=== PATIENT | female | born 1950 | race Caucasian/White ===

== ENCOUNTER → 2016-04-26 | Outpatient (CLI) | payer OTHER ==
--- NOTE | 2016-05-19 11:55 | MA ---
Screening Digital Mammogram With Tomosynthesis Clinical Indications: Routine screening. History of benign biopsy "right" breast. Technique: Standard digital cephalocaudal and tomosynthesis mediolateral oblique projections are obtained. The digital images were processed by the [employer] computer aided detection system. Comparison: None Breast density: B; There are scattered fibroglandular densities. Findings: CAD was reviewed. There is a large oval, gently lobulated, mass in the outer left breast, measuring 5.3 x 2.9 cm. There is no stereotactic marker associated with the mass in the left breast. There is a stereotactic clip in the inner right breast. Impression: Large mass outer left breast. Recommendation: Ultrasound to differentiate cyst from solid. Of course, if the patient can obtain previous outside mammograms, we would be happy to review them to assess for interval change. BI-RADS 0. Additional imaging left breast. [facility] will send a result letter to the patient. Negative mammography should not preclude additional workup of a clinically suspicious finding. The patient's information is entered into a reminder system with a target due date for her next mammogram. [facility], [place]
== END ==
LOC: FIMAGING 10:32
DX: Z12.31 Encounter for screening mammogram for malignant neoplasm of breast (principal)
CPT/HCPCS: G0202

== ENCOUNTER → 2016-05-30 | Outpatient (CLI) | payer OTHER ==
--- NOTE | 2016-05-30 10:53 | US ---
Left Breast Ultrasound History: Evaluate large nodular asymmetry noted in the upper outer left breast on the screening mammo graphic study April 26, 2016. The previous studies from [facility] dated November 2008 arrived after the patient had been scheduled for ultrasound evaluation. Technique: Longitudinal and transverse images were obtained utilizing a 15 MHz transducer. Color Dop pler evaluation is employed for assessment of vascularity. Findings: On physical examination there is a vaguely palpable asymmetry in the left breast at the 2-3 o'clock position 7 cm from the nipple. This would correlate to the area of nodular asymmetry noted m ammographically. Sonographic interrogation demonstrates a heterogeneous lobulated lesion measuring 5. 4 x 1.3 cm. This has somewhat ill-defined margins and mild posterior acoustic enhancement. Review of the mammographic findings demonstrates quite heterogeneous attenuation. This lesion was present on 2008 study and is unchanged in size or appearance mammographically. The constellation of findings o n mammography, sonography and stability since 2008 is compatible with a benign lesion probably a hama rtoma. Impression: Benign findings when considering mammographic and sonographic assessment, BI-RADS 2. Recommendation: Resume routine mammographic screening in one year as long as physical examination is negative. Findings and follow-up recommendations including continued clinical evaluation were reviewed with the patient in detail. [facility] will send a result letter to the patient.
== END ==
LOC: FIMAGING 09:41
PROVIDERS: ATTEND Physician Assistant
DX: R92.8 Other abnormal and inconclusive findings on diagnostic imaging of breast (principal)

== ENCOUNTER 2016-07-24 15:19 | Emergency (ER) | payer OTHER ==
[2016-07-24 15:26] VITALS: RESP 18; TEMP 97.7
--- NOTE | 2016-07-24 15:33 | EDPHY ---
H & P Time Seen by Provider: 07/24/16 15:30 HPI/ROS: Chief complaint. Fall, wrist injury HPI. 65-year-old female was trying out a new pair shoes. She slipped and tripped. She fell on outstretched left hand. Injured her left wrist. She did strike her face but did not lose conscious really does not have any face pain now. Patient is right handed. No previous injury to the left wrist. ROS Constitutional. no fever/chills, no weakness Eyes. no problems with vision ENT. no sore throat, no nasal drainage Cardiovascular. no chest pain Respiratory. no shortness of breath, no cough Abdominal. no abdominal pain, no nausea/vomiting, no diarrhea . no problems urinating MS. Left wrist pain Skin. no rash Lymph. no swollen glands Neuro. no headache, no dizziness, no difficulty walking or with speech Past Medical/Surgical History: Depression Social History: , nonsmoker, no alcohol Smoking Status: Never smoked Physical Exam: General Appearance: Alert well-developed female mild distress vital signs stable Eyes: Pupils equal and round no pallor or injection. ENT, Mouth: Mucous membranes are moist. Respiratory: There are no retractions, lungs are clear to auscultation. Cardiovascular: Regular rate and rhythm. Gastrointestinal: Abdomen is soft and nontender, no masses, bowel sounds normal. Neurological: Awake and alert, sensory and motor exams grossly normal. Skin: Warm and dry, no rashes. Musculoskeletal: Neck is supple nontender. Extremities left wrist is diffusely swollen but no significant deformity. Distal motor vascular sensitivity is intact. She is tender to palpation to the distal radius Psychiatric: Patient is oriented X 3, there is no agitation. Constitutional: Initial Vital Signs Temperature (C) 36.5 C 07/24/16 15:22 Heart Rate 91 07/24/16 15:22 Respiratory Rate 18 07/24/16 15:22 Blood Pressure 147/100 H 07/24/16 15:22 O2 Sat (%) 93 07/24/16 15:22 O2 Delivery Mode Room Air Allergies/Adverse Reactions: No Known Allergies Allergy (Unverified 07/24/16 15:26) Home Medications: Medication Instructions Recorded Lexapro 07/24/16 Wellbutrin Sr 07/24/16 oxyCODONE/APAP 5/325 [Percocet 1 tab PO Q4-6PRN PRN #14 tab 07/24/16 5/325] Medical Decision Making - Diagnostics Imaging: X-ray left wrist interpreted by me shows a mildly comminuted intra-articular distal radius fracture. Essentially no displacement or deformity. Small displaced ulnar styloid fracture is noted as well Procedures: Patient is placed in a sugar-tong splint left forearm. Post splint application shows good anatomic position and distal motor vascular sensitivity intact. She is placed in a sling ED Course/Re-evaluation: Patient remained stable. She and I discussed imaging study results, treatment plan, criteria for return importance of follow-up and further evaluation. She expresses understanding and agreement Differential Diagnosis: I considered fracture, dislocation, sprain - Data Points Medications Given: Discontinued Medications Ibuprofen (Motrin) 600 mg PO EDNOW ONE Stop: 07/24/16 15:38 Last Admin: 07/24/16 15:47 Dose: 600 mg Departure - Departure Disposition: Home, Routine, Self-Care Clinical Impression: Distal radius fracture, left Qualifiers: Encounter type: initial encounter Fracture type: closed Fracture morphology: other intra-articular Qualified Code(s): S52.572A - Other intraarticular fracture of lower end of left radius, initial encounter for closed fracture Condition: Good Instructions: Wrist Fracture in Adults (ED) Additional Instructions: Splint and sling until you see orthopedist. Ice to wrist next 24-48 hours. Tylenol or Percocet as needed for pain. Return for worsening symptoms. Call in the morning to arrange follow-up orthopedist evaluation Referrals: Tish Mccauley PA [Primary Care Provider] - As per Instructions John Ramsey MD [Medical Doctor] - 5-7 days, call for appt. Prescriptions: oxyCODONE/APAP 5/325 [Percocet 5/325] 1 tab PO Q4-6PRN PRN #14 tab PRN Reason: Pain, Moderate
[2016-07-24] MEDS ORDERED: IBUPROFEN 600 MG TAB PO ONE (15:37)
[2016-07-24 17:21] VITALS: BP 135/88; PULSE 71; O2SAT 96
== END 2016-07-24 17:18 | disposition home or self-care (01) ==
DX: S52.572A Other intraarticular fracture of lower end of left radius, initial encounter for closed fracture (principal); W01.0XXA Fall on same level from slipping, tripping and stumbling without subsequent striking against object, initial encounter

== ENCOUNTER → 2016-10-09 | Outpatient (CLI) | payer OTHER | LOC: FIMAGING 14:04 | PROVIDERS: ATTEND Physician Assistant | DX: Z13.820 Encounter for screening for osteoporosis (principal); M85.80 Other specified disorders of bone density and structure, unspecified site; S62.109A Fracture of unspecified carpal bone, unspecified wrist, initial encounter for closed fracture ==

== ENCOUNTER 2016-12-06 10:23 | Emergency (ER) | payer OTHER ==
[2016-12-06 10:28] VITALS: RESP 16; TEMP 97.9
--- NOTE | 2016-12-06 11:48 | EDPHY ---
H & P Time Seen by Provider: 12/06/16 11:47 HPI/ROS: Chief complaint. Nausea vomiting HPI. 66-year-old female presents emergency department with vertigo for 3 days. She notes dizziness and sense of movement. Her symptoms are worse with standing and movement of her head. Better with lying still. She feels dizzy and off balance. No upper respiratory symptoms or fever. No change in hearing. She has had increased allergies recently. The dizziness precipitates nausea and vomiting. Denies headache, focal weakness or paresthesias ROS Constitutional. no fever/chills, no weakness Eyes. no problems with vision ENT. no sore throat, no nasal drainage Cardiovascular. no chest pain Respiratory. no shortness of breath, no cough Abdominal. No abdominal pain but nausea and vomiting . no problems urinating MS. no calf pain/swelling, no neck/back pain, no joint pain Skin. no rash Lymph. no swollen glands Neuro. Dizziness Past Medical/Surgical History: Past medical history significant for depression and previous vertigo Social History: Single, nonsmoker, no alcohol Smoking Status: Former smoker Physical Exam: General Appearance: Alert well-developed female mild distress vital signs are stable Eyes: Pupils equal and round no pallor or injection. No nystagmus ENT, Mouth: Mucous membranes are moist. Respiratory: There are no retractions, lungs are clear to auscultation. Cardiovascular: Regular rate and rhythm. Gastrointestinal: Abdomen is soft and nontender, no masses, bowel sounds normal. Neurological: Awake and alert, sensory and motor exams grossly normal. Speech is normal. Cranial nerves are normal. There is no pronator drift. Finger-to- nose and [id number] are intact bilaterally Skin: Warm and dry, no rashes. Musculoskeletal: Neck is supple nontender. Extremities symmetrical, full range of motion. Psychiatric: Patient is oriented X 3, there is no agitation. Constitutional: Initial Vital Signs Temperature (C) 36.6 C 12/06/16 10:23 Heart Rate 70 12/06/16 10:23 Respiratory Rate 16 12/06/16 10:23 O2 Sat (%) 92 12/06/16 10:23 O2 Delivery Mode Room Air Allergies/Adverse Reactions: No Known Allergies Allergy (Unverified 07/24/16 15:26) Home Medications: Medication Instructions Recorded Lexapro 07/24/16 Wellbutrin Sr 07/24/16 oxyCODONE/APAP 5/325 [Percocet 1 tab PO Q4-6PRN PRN #14 tab 07/24/16 5/325] Meclizine HCl [Meclizine HCl 25 mg 25 mg PO TID PRN #10 tab 12/06/16 (RX,OTC)] Promethazine HCl [Phenergan 25mg 25 mg PO Q4-6PRN PRN #7 tab 12/06/16 (*)] Medical Decision Making Procedures: IV Zofran. Oral meclizine ED Course/Re-evaluation: Re-evaluation 2:05 p.m.--feeling better and no symptoms Patient and I discussed laboratory evaluation, treatment plan, criteria for return and importance of follow-up and further evaluation. She expresses understanding and agreement Differential Diagnosis: This is likely vertigo. It appears to be a peripheral vertigo. Normal workup and treatment with good resolution of symptoms. No evidence for intracranial bleeding or CVA - Data Points Laboratory Results: Laboratory Results 12/06/16 10:38 12/06/16 10:38 12/06/16 12/06/16 10:38 10:38 WBC 9.68 10^3/uL H 10^3/uL (3.80-9.50) RBC 5.77 10^6/uL H 10^6/uL (4.18-5.33) Hgb 16.5 g/dL H g/dL (12.6-16.3) Hct 50.5 % H % (38.0-47.0) MCV 87.5 fL fL (81.5-99.8) MCH 28.6 pg pg (27.9-34.1) MCHC 32.7 g/dL g/dL (32.4-36.7) RDW 13.7 % % (11.5-15.2) Plt Count 221 10^3/uL 10^3/uL (150-400) MPV 11.1 fL fL (8.7-11.7) Neut % (Auto) 71.1 % % (39.3-74.2) Lymph % (Auto) 23.1 % % (15.0-45.0) [place] % (Auto) 4.0 % L % (4.5-13.0) Eos % (Auto) 0.6 % % (0.6-7.6) Baso % (Auto) 0.6 % % (0.3-1.7) Nucleat RBC Rel Count 0.0 % % (0.0-0.2) Absolute Neuts (auto) 6.87 10^3/uL H 10^3/uL (1.70-6.50) Absolute Lymphs (auto) 2.24 10^3/uL 10^3/uL (1.00-3.00) Absolute Monos (auto) 0.39 10^3/uL 10^3/uL (0.30-0.80) Absolute Eos (auto) 0.06 10^3/uL 10^3/uL (0.03-0.40) Absolute Basos (auto) 0.06 10^3/uL 10^3/uL (0.02-0.10) Absolute Nucleated RBC 0.00 10^3/uL 10^3/uL (0-0.01) Immature Gran % 0.6 % % (0.0-1.1) Immature Gran # 0.06 10^3/uL 10^3/uL (0.00-0.10) Sodium 142 mEq/L mEq/L (134-144) Potassium 3.9 mEq/L mEq/L (3.5-5.2) Chloride 103 mEq/L mEq/L (97-110) Carbon Dioxide 21 mEq/l L mEq/l (22-31) Anion Gap 18 mEq/L H mEq/L (8-16) BUN 18 mg/dL mg/dL (7-23) Creatinine 0.8 mg/dL mg/dL (0.6-1.0) Estimated GFR > 60 Glucose 85 mg/dL mg/dL (70-100) Calcium 9.7 mg/dL mg/dL (8.5-10.4) Troponin I < 0.012 ng/mL ng/mL (0.000-0.034) Medications Given: Discontinued Medications Sodium Chloride (Ns) 1,000 mls @ 0 mls/hr IV EDNOW ONE; Wide Open PRN Reason: Protocol Stop: 12/06/16 12:03 Last Admin: 12/06/16 12:12 Dose: 1,000 mls Meclizine HCl (Meclizine Hcl) 25 mg PO EDNOW ONE Stop: 12/06/16 12:03 Last Admin: 12/06/16 12:12 Dose: 25 mg Ondansetron HCl (Zofran) 4 mg IVP EDNOW ONE Stop: 12/06/16 12:03 Last Admin: 12/06/16 12:12 Dose: 4 mg Departure - Departure Disposition: Home, Routine, Self-Care Clinical Impression: Vertigo Condition: Good Instructions: Vertigo (ED) Additional Instructions: Meclizine as needed for dizziness. Zofran if needed for nausea and vomiting. Return for worsening symptoms. Recheck in 2-3 days if not improved Referrals: Tish Mccauley PA [Primary Care Provider] - 2-3 days, if not improved Prescriptions: Meclizine HCl [Meclizine HCl 25 mg (RX,OTC)] 25 mg PO TID PRN #10 tab PRN Reason: Dizziness Promethazine HCl [Phenergan 25mg (*)] 25 mg PO Q4-6PRN PRN #7 tab PRN Reason: Nausea/Vomiting, Use 1st
[2016-12-06] MEDS ORDERED: NS 1,000 ML IV ONE (12:02)
[2016-12-06] MEDS ORDERED: MECLIZINE HCL 25 MG TAB PO ONE (12:02)
[2016-12-06] MEDS ORDERED: ONDANSETRON 4 MG/2 ML VIAL IVP ONE (12:02)
[2016-12-06 12:16] LABS: % IMMATURE GRANULYOCYTES 0.6 % (0.0-1.1); ABSOLUTE IMMATURE GRANULOCYTES 0.06 10^3/uL (0.00-0.10); ADD DIFF? NO; ADD MORPH? NO; ADD SCAN? NO; ATYPICAL LYMPHOCYTE FLAG 0 (0-99); FRAGMENT RBC FLAG 0 (0-99); HEMATOCRIT 50.5 % (38.0-47.0); HEMOGLOBIN 16.5 g/dL (12.6-16.3); LEFT SHIFT FLG 0 (0-99); LIPEMIA HEMOLYSIS FLAG 80 (0-99); MEAN CELL HEMOGLOBIN 28.6 pg (27.9-34.1); MEAN CELL HEMOGLOBIN CONCENTR. 32.7 g/dL (32.4-36.7); MEAN CELL VOLUME 87.5 fL (81.5-99.8); MEAN PLATELET VOLUME 11.1 fL (8.7-11.7); PLATELET CLUMPS FLAG 50 (0-99); PLATELET COUNT 221 10^3/uL (150-400); RED BLOOD CELL COUNT 5.77 10^6/uL (4.18-5.33); RED CELL DISTRIBUTION WIDTH 13.7 % (11.5-15.2)
[2016-12-06 12:21] LABS: ANION GAP 18 mEq/L (8-16); CALCIUM 9.7 mg/dL (8.5-10.4); CARBON DIOXIDE 21 mEq/l (22-31); CHLORIDE 103 mEq/L (97-110); CREATININE 0.8 mg/dL (0.6-1.0); GLOMERULAR FILTRATION RATE > 60; GLUCOSE 85 mg/dL (70-100); POTASSIUM 3.9 mEq/L (3.5-5.2); SODIUM 142 mEq/L (134-144)
[2016-12-06 12:34] LABS: TROPONIN I < 0.012 ng/mL (0.000-0.034)
[2016-12-06 14:32] VITALS: BP 136/93; PULSE 85; O2SAT 92
== END 2016-12-06 14:32 | disposition home or self-care (01) ==
LOC: EDUNIT#
DX: R42 Dizziness and giddiness (principal); E86.9 Volume depletion, unspecified; Z87.891 Personal history of nicotine dependence
CPT/HCPCS: 96361; 96374; 99284; J2405

== ENCOUNTER → 2017-08-29 | Outpatient (CLI) | payer OTHER | LOC: FIMAGING 10:11 | PROVIDERS: ATTEND Physician Assistant | DX: Z12.31 Encounter for screening mammogram for malignant neoplasm of breast (principal) ==